=== PATIENT | female | born 1955 | race Two or more races ===

== ENCOUNTER 2022-08-02 05:15 | Day surgery (SDC) | payer OTHER ==
[~2022-08-02 05:15] MED LIST: ACTOS45 MG PO; AVAPRO300 MG PO; GABAPENTIN600 MG PO; GLIMEPIRIDE4 MG; INTESTINEX680 M1 PO; LIPITOR20 MG PO; METFORMIN HCL500 M3 PO; PEPCID40 MG PO; SINGULAIR 10MG10 MG PO
== END 2022-08-02 11:30 | disposition home or self-care (01) ==
LOC: CIR.AMB 05:15
PROVIDERS: ATTEND Orthopaedic Surgery
DX: M75.121 Complete rotator cuff tear or rupture of right shoulder, not specified as traumatic (principal); M75.21 Bicipital tendinitis, right shoulder; M24.111 Other articular cartilage disorders, right shoulder; Z20.822 Contact with and (suspected) exposure to COVID-19; Z88.6 Allergy status to analgesic agent; Z88.5 Allergy status to narcotic agent; E11.9 Type 2 diabetes mellitus without complications; I10 Essential (primary) hypertension